=== PATIENT | female | born 1995 | race African-American/Black ===

== ENCOUNTER 2023-08-18 09:26 | Emergency (ER) | payer MEDICAID ==
[~2023-08-18] VITALS: Ht 167.6 cm; Wt 68.0 kg
[2023-08-18 09:37] VITALS: BP 127/79; PULSE 79; RESP 18; TEMP 98.3; O2SAT 99
== END 2023-08-18 14:21 | disposition left against medical advice (07) ==
LOC: ER 09:26
DX: R51.9 Headache, unspecified (principal); Z53.21 Procedure and treatment not carried out due to patient leaving prior to being seen by health care provider
CPT/HCPCS: 81025; 99281

== ENCOUNTER 2023-09-15 20:51 | Emergency (ER) | payer MEDICAID ==
[~2023-09-15] VITALS: Ht 167.6 cm; Wt 80.0 kg
[2023-09-15 20:58] VITALS: O2SAT 98
[2023-09-15 21:10] VITALS: TEMP 98.8
[2023-09-15 21:44] LABS: CLARITY URINE TURBID (CLEAR); COLOR URINE DARK YELLOW (YELLOW); GLUCOSE URINE NEGATIVE (NEGATIVE); KETONES URINE TRACE (NEGATIVE); LEUKOCYTE ESTERASE URINE TRACE (NEGATIVE); NITRITE URINE NEGATIVE (NEGATIVE); OCCULT BLOOD URINE NEGATIVE (NEGATIVE); PROTEIN URINE TRACE (NEGATIVE); SPECIFIC GRAVITY URINE 1.037 (1.005-1.030)
[2023-09-15 21:55] LABS: BASOPHILS % 0.4 % (0.0-2.0); DIFFERENTIAL COMMENT 0; HEMOGLOBIN. 12.6 g/dL (12.0-16.0); LYMPHOCYTES % 16.6 % (20.0-50.0); MEAN CORPUSCULAR HEMOGLOBIN 24.2 pg (28.0-32.0); MEAN CORPUSCULAR HGB CONC 31.4 g/dL (31.0-37.0); MEAN CORPUSCULAR VOLUME 77.1 fL (81.0-99.0); MEAN PLATELET VOLUME 8.7 fl (7.4-10.4); MONOCYTES % 10.7 % (2.0-8.0); NEUTROPHILS % 71.3 % (40.0-76.0); PLATELET 298 x1000/uL (130-400); RED BLOOD CELL COUNT 5.19 mill/uL (4.2-5.4); RED CELL DISTRIBUTION WIDTH 14.4 % (11.6-14.6); WHITE BLOOD COUNT 4.9 x1000/uL (4.5-11.0)
[2023-09-15 22:05] LABS: ALANINE AMINOTRANSFERASE 19 IU/L (10-49); ALBUMIN 4.6 g/dL (3.2-4.8); ASPARTATE AMINOTRANSFERASE 24 IU/L (<34); BILIRUBIN TOTAL 0.4 mg/dL (0.1-1.0); CALCIUM 9.8 mg/dL (8.7-10.4); CARBON DIOXIDE 29 mEq/L (21-32); CHLORIDE 106 mEq/L (98-107); CREATININE 0.9 mg/dL (0.6-1.0); GLUCOSE 98 mg/dL (70-105); POTASSIUM 4.4 mEq/L (3.5-5.1); PROTEIN TOTAL 7.5 g/dL (6.0-8.3); SODIUM 140 mEq/L (136-145); UREA NITROGEN BLOOD 8 mg/dL (9-23)
[2023-09-15 22:08] LABS: BACTERIA URINE 2+; RBC URINE 0-2 /hpf (0-2); SQUAMOUS EPITHELIAL CELL URINE 2+ /lpf (RARE/1+)
[2023-09-15] MEDS ORDERED: KETOROLAC 60MG/2ML VIAL IM STA (23:26)
[2023-09-15] MEDS ORDERED: KETOROLAC 15MG/ML VIAL IV ONE (23:45)
[2023-09-16 03:18] LABS: HCG SCREEN NEGATIVE
[2023-09-16] MEDS ORDERED: NAPR-1176 MT (05:00)
[2023-09-16 05:40] VITALS: BP 115/56; PULSE 65; RESP 16
== END 2023-09-16 05:40 | disposition home or self-care (01) ==
LOC: ER 20:51
DX: R10.13 Epigastric pain (principal); R10.31 Right lower quadrant pain; R10.2 Pelvic and perineal pain
CPT/HCPCS: 80053; 81003; 81025; 84703; 83690; 85025; 36415; 96374; 99285; 74176; 76830; 76856; J1885; Z7610

== ENCOUNTER 2023-09-19 00:26 | Emergency (ER) | payer MEDICAID ==
[~2023-09-19] VITALS: Ht 167.6 cm; Wt 81.0 kg
[~2023-09-19 00:26] MED LIST: NAPR-1176 MT
[2023-09-19 00:33] VITALS: O2SAT 98
[2023-09-19] MEDS ORDERED: HYDROCODONE/ACETAMINOPHEN 5/325MG TABLET PO ONE (01:15)
[2023-09-19] MEDS ORDERED: ONDANSETRON 4MG ODT PO ONE (01:15)
[2023-09-19] MEDS ORDERED: KETOROLAC 30MG/ML VIAL IM ONE (01:15)
[2023-09-19 01:17] LABS: HEMATOCRIT 36.7 % (36.0-48.0); HEMOGLOBIN 11.7 g/dL (12.0-16.0); MEAN CORPUSCULAR HEMOGLOBIN 24.3 pg (28.0-32.0); MEAN CORPUSCULAR VOLUME 76.1 fL (81.0-99.0); PLATELET 289 x1000/uL (130-400); RED BLOOD CELL COUNT 4.82 mill/uL (4.2-5.4); RED CELL DISTRIBUTION WIDTH 14.5 % (11.6-14.6); WHITE BLOOD COUNT 4.3 x1000/uL (4.5-11.0)
[2023-09-19 01:30] LABS: ALANINE AMINOTRANSFERASE 12 IU/L (10-49); ALBUMIN 4.2 g/dL (3.2-4.8); ASPARTATE AMINOTRANSFERASE 18 IU/L (<34); BILIRUBIN TOTAL 0.3 mg/dL (0.1-1.0); CALCIUM 9.6 mg/dL (8.7-10.4); CARBON DIOXIDE 27 mEq/L (21-32); CHLORIDE 108 mEq/L (98-107); CREATININE 0.8 mg/dL (0.6-1.0); GLUCOSE 109 mg/dL (70-105); POTASSIUM 3.7 mEq/L (3.5-5.1); PROTEIN TOTAL 6.9 g/dL (6.0-8.3); SODIUM 141 mEq/L (136-145); UREA NITROGEN BLOOD 13 mg/dL (9-23)
[2023-09-19 02:09] LABS: HCG SCREEN NEGATIVE
[2023-09-19 02:39] LABS: HEMATOCRIT 36.5 % (36.0-48.0); HEMOGLOBIN 11.9 g/dL (12.0-16.0); MEAN CORPUSCULAR HEMOGLOBIN 24.3 pg (28.0-32.0); MEAN CORPUSCULAR HGB CONC 32.6 g/dL (31.0-37.0); MEAN CORPUSCULAR VOLUME 74.5 fL (81.0-99.0); PLATELET 275 x1000/uL (130-400); RED CELL DISTRIBUTION WIDTH 14.3 % (11.6-14.6); WHITE BLOOD COUNT 5.1 x1000/uL (4.5-11.0)
[2023-09-19] MEDS ORDERED: ACET-2708 MT (03:00)
[2023-09-19 03:54] VITALS: BP 124/86; PULSE 71; RESP 19; TEMP 98.5
== END 2023-09-19 03:56 | disposition home or self-care (01) ==
LOC: ER 00:26
DX: N83.201 Unspecified ovarian cyst, right side (principal); R10.2 Pelvic and perineal pain
CPT/HCPCS: 80053; 84703; 85027; 36415; 76830; 76856; 96372; 99285; Q0162; J1885; Z7610